=== PATIENT | male | born 1965 | race Caucasian/White ===

== ENCOUNTER → 2024-02-12 14:42 | Outpatient (REF) | payer OTHER, SELFPAY | LOC: RAD 14:42 | PROVIDERS: ATTENDING PHYSICIAN Student in an Organized Health Care Education/Training Program | DX: N50.811 Right testicular pain (principal) | CPT/HCPCS: 76870; 76882; 93976 ==

== ENCOUNTER 2025-02-03 06:24 | Day surgery (SDC) | payer OTHER, SELFPAY | END 2025-02-03 13:59 | disposition home or self-care (01) | LOC: GI 06:24 | PROVIDERS: ATTENDING PHYSICIAN Internal Medicine; FAMILY PHYSICIAN Family Medicine | DX: Z12.11 Encounter for screening for malignant neoplasm of colon (principal); K57.30 Diverticulosis of large intestine without perforation or abscess without bleeding; K64.8 Other hemorrhoids; D12.3 Benign neoplasm of transverse colon; D12.8 Benign neoplasm of rectum; Z80.0 Family history of malignant neoplasm of digestive organs; Z86.0100 Personal history of colon polyps, unspecified | CPT/HCPCS: 45385; 88305 ==